=== PATIENT | female | born 1990 | race African-American/Black ===

== ENCOUNTER 2018-11-03 07:15 | Day surgery (SDC) | payer OTHER ==
[2018-11-03] MEDS ORDERED: LORazepam 2 MG/ML VIAL ONE (08:48)
[2018-11-03] MEDS ORDERED: FAMOTIDINE 20 MG/2 ML VIAL IV ONE (08:48)
[2018-11-03] MEDS ORDERED: LIDOCAINE HCL 1% PF 300MG/30ML VIAL ONE (08:48)
[2018-11-03] MEDS ORDERED: PROPOFOL 200 MG/20 ML VIAL IV ONE (08:48)
[2018-11-03] MEDS ORDERED: LIDOCAINE HCL 2% PF 100MG/5ML VIAL IJ ONE (08:48)
[2018-11-03] MEDS ORDERED: SUCCINYLCHOLINE CHLORIDE 200 MG/10 ML VIAL ONE (08:48)
[2018-11-03] MEDS ORDERED: ceFAZolin SODIUM 1 GM VIAL ONE (08:48)
[2018-11-03] MEDS ORDERED: SUGAMMADEX SODIUM 200 MG/2 ML VIAL IV ONE (08:48)
[2018-11-03] MEDS ORDERED: PROPOFOL 500 MG/50 ML VIAL IV ONE (08:48)
[2018-11-03] MEDS ORDERED: LACTATED RINGERS 1,000 ML IV.SOLN IV ONE ×2 (08:48)
[2018-11-03] MEDS ORDERED: HYDROmorphone HCL/PF 1 MG/ML VIAL ONE (08:48)
[2018-11-03] MEDS ORDERED: SEVOFLURANE 250 ML LIQUID IH ONE (08:48)
[2018-11-03] MEDS ORDERED: fentaNYL CITRATE/PF 100 MCG/2 ML INJ. ONE ×2 (08:48)
[2018-11-03] MEDS ORDERED: ROCURONIUM BROMIDE 10 MG/ML 5ML VIAL ONE (08:48)
[2018-11-03] MEDS ORDERED: MIDAZOLAM HCL 2 MG/2 ML VIAL ONE (08:48)
[2018-11-03] MEDS ORDERED: ONDANSETRON HCL/PF 4 MG/ 2ML VIAL ONE (08:48)
[2018-11-03] MEDS ORDERED: SODIUM CHLORIDE IRRIG SOLUTION 3,000 ML IRRIG.SOLN IR ONE (08:48)
[2018-11-03] MEDS ORDERED: BUPIV. HCL 0.25% (2.5MG/ML)/EPI. (1:200,000) PF 30 ML VIAL IJ ONE (08:48)
[2018-11-03] MEDS ORDERED: DEXAMETHASONE SODIUM PHOSPHATE 10 MG/ML VIAL ONE (08:48)
== END 2018-11-03 13:24 | disposition other institution (70) ==
LOC: OPSURG 07:15 → UNDOADMIN 13:25 → SOUTH 13:25
PROVIDERS: ATTEND Surgery
DX: E66.01 Morbid (severe) obesity due to excess calories (principal); Z68.43 Body mass index [BMI] 50.0-59.9, adult
CPT/HCPCS: 43775; 88305; J0330; J0690; J1170; J2001; J2060; J2250; J2405; J2704; J3010; J7120

== ENCOUNTER 2018-11-03 13:25 | Inpatient (IN) | payer OTHER ==
[2018-11-03] MEDS ORDERED: NORMAL SALINE 1,000 ML IV.SOLN IV ONE (13:39)
[2018-11-03] MEDS ORDERED: MORPHINE SULFATE 2 MG/ML VIAL ONE (13:55)
[2018-11-03] MEDS ORDERED: KETOROLAC TROMETHAMINE 30 MG/1ML VIAL ONE ×2 (13:55→22:49)
[2018-11-03] MEDS ORDERED: ONDANSETRON HCL/PF 4 MG/ 2ML VIAL ONE ×2 (13:55→22:49)
[2018-11-03] MEDS ORDERED: 0.9 % SODIUM CHLORIDE 50 ML IV.SOLN IV ONE (17:46)
[2018-11-03] MEDS ORDERED: PROMETHAZINE HCL 25 MG/ML VIAL ONE (17:46)
[2018-11-04] MEDS ORDERED: PROMETHAZINE HCL 25 MG/ML VIAL ONE ×2 (00:52→10:01)
[2018-11-04] MEDS ORDERED: 0.9 % SODIUM CHLORIDE 50 ML IV.SOLN IV ONE ×2 (00:52→10:01)
[2018-11-04] MEDS ORDERED: ceFAZolin SODIUM 1 GM/50 ML PIGGYBACK IV ONE ×2 (02:02→14:34)
[2018-11-04] MEDS ORDERED: FAMOTIDINE 20 MG/2 ML VIAL IV ONE ×2 (07:40→19:54)
[2018-11-04] MEDS ORDERED: ONDANSETRON HCL/PF 4 MG/ 2ML VIAL ONE ×2 (07:40→17:21)
[2018-11-04] MEDS ORDERED: ENOXAPARIN SODIUM 40 MG/0.4 ML DISP.SYRIN SQ ONE (07:40)
[2018-11-04] MEDS ORDERED: HYDROcodone-ACETAMIN 7.5-325/15ML SOLN UD CUP PO ONE (17:21)
[2018-11-04] MEDS ORDERED: KETOROLAC TROMETHAMINE 30 MG/1ML VIAL ONE (20:43)
[2018-11-05] MEDS ORDERED: ONDANSETRON HCL/PF 4 MG/ 2ML VIAL ONE (02:06)
[2018-11-05] MEDS ORDERED: FAMOTIDINE 20 MG/2 ML VIAL IV ONE (08:20)
[2018-11-05] MEDS ORDERED: ENOXAPARIN SODIUM 40 MG/0.4 ML DISP.SYRIN SQ ONE (08:20)
[2018-11-21 12:52] LABS: BASOPHILS % 0.5 % (0.0-1.5); NEUTROPHILS # 10.2 # k/uL (1.4-7.7); eGFR (Non-African) > 60
[2018-11-21 13:32] LABS: BASOPHILS % 0.3 % (0.0-1.5); NEUTROPHILS # 9.5 # k/uL (1.4-7.7)
[2018-11-21 17:06] LABS: BASOPHILS % 0.7 % (0.0-1.5); NEUTROPHILS # 6.8 # k/uL (1.4-7.7); eGFR (Non-African) > 60
== END 2018-11-05 10:50 | disposition home or self-care (01) | DRG 621 ==
LOC: SOUTH 13:25
PROVIDERS: ADMIT Nurse Practitioner Family; ATTEND Nurse Practitioner Family
PROC: 0DB64Z3 Excision of Stomach, Percutaneous Endoscopic Approach, Vertical (ICD-10-PCS; principal; 2018-11-03)
DX: E66.01 Morbid (severe) obesity due to excess calories (principal); E11.9 Type 2 diabetes mellitus without complications; F41.9 Anxiety disorder, unspecified; F17.210 Nicotine dependence, cigarettes, uncomplicated; F32.9 Major depressive disorder, single episode, unspecified; G89.29 Other chronic pain; M54.9 Dorsalgia, unspecified; M25.562 Pain in left knee; L27.1 Localized skin eruption due to drugs and medicaments taken internally; T49.0X5A Adverse effect of local antifungal, anti-infective and anti-inflammatory drugs, initial encounter; M25.561 Pain in right knee; M25.572 Pain in left ankle and joints of left foot; M25.571 Pain in right ankle and joints of right foot; K21.9 Gastro-esophageal reflux disease without esophagitis; R11.2 Nausea with vomiting, unspecified; E86.0 Dehydration; Z88.5 Allergy status to narcotic agent; Z68.43 Body mass index [BMI] 50.0-59.9, adult; Y92.239 Unspecified place in hospital as the place of occurrence of the external cause
CPT/HCPCS: 36415; 80053; 85025; 99234; J1650; J1885; J2270; J2405; J2550; A9270-GY; J7030; S1016